=== PATIENT | female | born 1970 | race Caucasian/White ===

== ENCOUNTER 2017-08-12 06:30 | Day surgery (SDC) | payer BC ==
[2017-08-09 12:14] LABS: HCG,QUAL RESULT NEGATIVE (NEGATIVE)
[~2017-08-12] VITALS: Ht 149.9 cm; Wt 65.8 kg
[2017-08-12] MEDS ORDERED: ONDANSETRON HCL 4 MG/2 ML VIAL IVP PRN (08:30)
[2017-08-12] MEDS ORDERED: fentaNYL CITRATE/PF 100 MCG/2 ML AMP IVP PRN ×2 (08:30)
[2017-08-12] MEDS ORDERED: fentaNYL CITRATE/PF 100 MCG/2 ML AMP ONE (09:38)
[2017-08-12 11:15] VITALS: BP_SYST 126
== END 2017-08-12 11:15 | disposition home or self-care (01) ==
LOC: SDS 06:30 → SMU 06:31 → SDS 11:15
PROVIDERS: ATTEND Otolaryngology
DX: J34.2 Deviated nasal septum (principal); Z88.8 Allergy status to other drugs, medicaments and biological substances; J45.909 Unspecified asthma, uncomplicated; Z79.899 Other long term (current) drug therapy
CPT/HCPCS: 30140; 30520; 84703; 88305; 88311; J3010; J7120